=== PATIENT | male | born 1940 | race Caucasian/White ===

== ENCOUNTER 2016-11-06 14:25 | Inpatient (IN) | payer MEDICARE, OTHER ==
[~2016-11-06] VITALS: Ht 177.8 cm; Wt 104.3 kg
[~2016-11-06 14:25] MED LIST: ALEVE220 M1 PO; ALEVE220 MG PO; ALOE VER OR; ASPIRIN LOW DOS81 M2 PO; B COMPLE2 PO; B COMPLE3 OR; B-12500 MC1 PO; BORON3 MG PO; CO Q10 MAX200 MG OR; CODLIVER OIL OR; COPPER2 MG OR; COQ-10100 M1 OR; FIBER625 MG PO; GARLIC1000 MG OR; GINKGO BILOB120 M1 OR; GINKGO BILOB120 MG PO; INDOMETHACIN50 MG PO; IRON325 MG PO; MACA500 MG OR; MAGNESIUM250 M1 OR; MELOXICAM7.5 MG PO; MIRALAX3350 NF PO; MSM1500 MG OR; MULT1 PO; MULTI VIT PO; MULTIVITAM10 OR; NIACINAMIDE; OMEGA-3 FISH1000 MG PO; OXYCODONE5 MG OR; PEROXIDE PO; PROMETHAZINE12.5 MG PO; TERAZOSIN5 MG OR; TERAZOSIN5 MG PO; VITAMIN C500 M1 PO; ZINC25 MG OR; ZINC50 M1 PO; [UNRECOGNIZED DRUG - OTHER] OR
[2016-11-06] MEDS ORDERED: COD LIVER PO (14:52)
[2016-11-06] MEDS ORDERED: TURMERIC500 M1 PO (14:53)
[2016-11-06] MEDS ORDERED: GINGER ROOT550 MG PO (14:53)
[2016-11-09 18:00] VITALS: BP 131/58
[2016-11-09 19:15] VITALS: BP 146/68
[2016-11-09 19:56] VITALS: BP 149/66
[2016-11-10 05:08] VITALS: BP 134/64
[2016-11-10 08:53] LABS: HEMATOCRIT 35.1 % (39.0-50.0); IMMATURE GRANULOCYTES 0.5 % (0.0-1.0); MEAN CELL VOLUME 91.6 fL CALC (80.0-100.0); MEAN CORPUSCULAR HGB 31.3 pG CALC (26.0-32.0); MEAN CORPUSCULAR HGB CONC 34.2 g/L CALC (32.0-36.0); NEUT# 9.82 thou/uL (1.82-7.42); RED BLOOD COUNT 3.83 mill/uL (4.70-6.10); RED CELL DISTRI WIDTH 12.4 % (11.5-15.5)
[2016-11-10 09:22] LABS: ALBUMIN 3.8 g/dL (3.2-5.0); ALKALINE PHOSPHATASE 60 u/l (38-126); ANION GAP 14 (6-22 (CALC)); BILIRUBIN, TOTAL 0.5 mg/dL (0.0-1.4); BUN 16 mg/dL (8-23); BUN/CREATININE RATIO 24 (12-20 (CALC)); CALCIUM 9.3 mg/dL (8.4-10.2); CARBON DIOXIDE 27 mmol/l (22-30); CHLORIDE 103 mmol/l (95-108); CREATININE 0.6 mg/dL (0.7-1.3); GFR > 60 ML/MIN (>=60 (CALC)); GFR FOR AFR.AMER. > 60 ML/MIN (>=60 (CALC)); GLUCOSE 162 mg/dL (82-115); POTASSIUM 4.4 mmol/l (3.5-5.1); SGOT/AST 35 u/l (19-48); SGPT/ALT 32 u/l (11-66); SODIUM 139 mmol/l (137-146); TOTAL PROTEIN 6.4 g/dL (6.3-8.2)
== END 2016-11-10 11:15 | disposition home or self-care (01) | DRG 483 ==
LOC: ENPENDDIS → MS2 11-09 08:35
PROVIDERS: Internal Medicine Geriatric Medicine; ADMIT Orthopaedic Surgery; ATTEND Orthopaedic Surgery
PROC: 0RRJ00Z Replacement of Right Shoulder Joint with Reverse Ball and Socket Synthetic Substitute, Open Approach (ICD-10-PCS; principal; 2016-11-09)
DX: M19.011 Primary osteoarthritis, right shoulder (principal); C85.90 Non-Hodgkin lymphoma, unspecified, unspecified site; K75.9 Inflammatory liver disease, unspecified; I10 Essential (primary) hypertension; M75.121 Complete rotator cuff tear or rupture of right shoulder, not specified as traumatic; I25.10 Atherosclerotic heart disease of native coronary artery without angina pectoris; Z85.819 Personal history of malignant neoplasm of unspecified site of lip, oral cavity, and pharynx; Z01.818 Encounter for other preprocedural examination; Z01.810 Encounter for preprocedural cardiovascular examination; Z96.653 Presence of artificial knee joint, bilateral; Z87.820 Personal history of traumatic brain injury; Z72.89 Other problems related to lifestyle; Z97.2 Presence of dental prosthetic device (complete) (partial)
CPT/HCPCS: J1100; J2710

== ENCOUNTER 2021-07-16 12:08 | Emergency (ER) | payer MEDICARE, OTHER ==
[~2021-07-16] VITALS: Ht 177.8 cm; Wt 100.0 kg
[~2021-07-16 12:08] MED LIST changes: +COD LIVER PO; +GINGER ROOT550 MG PO; +TURMERIC500 M1 PO
[2021-07-16 12:50] LABS: GFR > 60 ML/MIN (>=60 (CALC)); GFR FOR AFR.AMER. > 60 ML/MIN (>=60 (CALC))
[2021-07-16 12:51] LABS: HEMATOCRIT 37.3 % (39.0-50.0); HEMOGLOBIN 12.3 g/dl (14.0-18.0); IMMATURE GRANULOCYTES 0.1 % (0.0-5.0); MEAN CELL VOLUME 98.4 fL CALC (80.0-100.0); MEAN CORPUSCULAR HGB 32.5 pG CALC (26.0-32.0); NEUT# 5.79 thou/uL (1.82-7.42); RED BLOOD COUNT 3.79 mill/uL (4.70-6.10)
[2021-07-16 13:05] LABS: ALBUMIN 3.8 g/dL (3.2-5.0); ALKALINE PHOSPHATASE 69 u/l (38-126); ANION GAP 11 (6-22 (CALC)); BILIRUBIN, TOTAL 0.4 mg/dL (0.0-1.4); BUN 15 mg/dL (8-23); BUN/CREATININE RATIO 18 (12-20 (CALC)); CARBON DIOXIDE 30 mmol/l (22-30); CHLORIDE 102 mmol/l (95-108); CREATININE 0.8 mg/dL (0.7-1.3); GFR > 60 ML/MIN (>=60 (CALC)); GFR FOR AFR.AMER. > 60 ML/MIN (>=60 (CALC)); POTASSIUM 4.4 mmol/l (3.5-5.1); SGOT/AST 30 u/l (19-48); SODIUM 139 mmol/l (137-146); TOTAL PROTEIN 6.9 g/dL (6.3-8.2)
[2021-07-16 13:56] LABS: URINE BILIRUBIN - DIPSTICK NEGATIVE (NEGATIVE); URINE BLOOD DIPSTICK NEGATIVE (NEGATIVE); URINE COLOR YELLOW; URINE GLUCOSE - DIPSTICK NEGATIVE (NEGATIVE); URINE KETONE NEGATIVE (NEGATIVE); URINE LEUK ESTERASE NEGATIVE (NEGATIVE); URINE PROTEIN - DIPSTICK NEGATIVE (NEG-TRACE); URINE SPECIFIC GRAVITY 1.025; URINE UROBILINOGEN - DIPSTICK 0.2 E.U./dL (0.2)
[2021-07-16 14:00] LABS: URINE NITRITE - DIPSTICK NEGATIVE (Negative)
[2021-07-16 15:29] VITALS: BP 144/46
[2021-07-17] MEDS ORDERED: TAMSULOSIN HCL0.4 MG PO (11:42)
[2021-07-17] MEDS ORDERED: CENTRUM SILVER PO (11:42)
== END 2021-07-16 15:29 | disposition home or self-care (01) ==
LOC: ED 12:08
PROVIDERS: Family Medicine
DX: K40.90 Unilateral inguinal hernia, without obstruction or gangrene, not specified as recurrent (principal); I10 Essential (primary) hypertension
CPT/HCPCS: Q9967

== ENCOUNTER 2024-06-06 10:59 | Emergency (ER) | payer OTHER, MEDICARE ==
[2024-06-06] VITALS (7 sets, daily range): BP systolic 119–147; BP diastolic 67–75
[~2024-06-06] VITALS: Ht 177.8 cm; Wt 94.0 kg
[~2024-06-06 10:59] MED LIST changes: +CENTRUM SILVER PO; +TAMSULOSIN HCL0.4 MG PO
[2024-06-06] MEDS ORDERED: TRAMADOL HYDROC50 M1 PO (12:03)
== END 2024-06-06 12:24 | disposition home or self-care (01) | DRG 951 ==
LOC: ED 10:59
DX: Z76.0 Encounter for issue of repeat prescription (principal); I10 Essential (primary) hypertension; S62.102D Fracture of unspecified carpal bone, left wrist, subsequent encounter for fracture with routine healing; V89.2XXD Person injured in unspecified motor-vehicle accident, traffic, subsequent encounter